=== PATIENT | male | born 2000 | race Caucasian/White ===

== ENCOUNTER 2024-06-02 10:37 | Emergency (ER) | payer BC, SELFPAY ==
--- NOTE | ~2024-06-02 | CT_ITS ---
CLINICAL HISTORY: RLQ pain CT abdomen and pelvis with contrast Comparison: None Findings: The lung bases are clear. The appendix is seen on coronal image 14 and axial images [id number]. This is normal. No surrounding stranding or abnormal thickening. The liver, gallbladder, spleen, adrenal glands and pancreas are unremarkable. Kidneys, ureters and bladder are normal. No acute osseous finding. No bowel obstruction or free air. Scattered gas and fluid seen throughout nondistended small and large bowel. Mild engorgement of the vasa recta. Impression: Normal appendix. Findings may suggest mild enteritis. This document has been electronically signed by: Addy Babcock MD on 06/02/2024 13:13:48
[2024-06-02 10:49] VITALS: BP 132/65; PULSE 64; RESP 18; O2SAT 100; BMI 24.7
--- OUTSIDE RECORDS SUMMARY | 2024-06-02 11:11 | XMS_ITS | Encounter Summary ---
Author Organization [facility] Address [address] [place] [address] Phone Care Team Providers Care Metal Fitter Name Role Phone Ann Rubi MD Primary Care Prov ider Encounter Details Date Type Department Care Team (Late st Contact Info) Description 06/15/2017 Conversion Encounter [facility] [address] [phone] Ann Kelly MD [address] [address] Social History Tobacco Use Types Packs/Day Years Used Date Smoking Tobacco: Never Assessed Sex and Gender Information Value Date Recorded Sex Assigned at Not on file Legal Sex Male 12:17 PM EST Gender Identity Not on file Sexual Orientation Straight 02/26/2019 1: 28 PM EST documented as of this encounter Plan of Treatment Not on file documented as of this encounter Visit Diagnoses Not on filedocumented in this encounter Care Teams Metal Fitter Relationship Specialty Start Date End Date Ann Rubi MD [address] [address] PCP - General 02/28/17 documented as of this encounter
--- OUTSIDE RECORDS SUMMARY | 2024-06-02 11:11 | XMS_ITS | Encounter Summary ---
Author Organization [facility] Address [address] [place] [address] Phone Care Team Providers Care Roller Man Name Role Phone Ann Rubi MD Primary Care Prov ider Reason for Visit * Reason Comments Med Refill Encounter Details Date Type Department Care Team ([facility] st Contact Info) Description 07/08/2019 Refill [facility] [address] [phone] Lamar Jo MD [address] [address] Mild intermittent asthma with acute exacerbation Social History Tobacco Use Types Packs/Day Years Used Date Smoking Tobacco: Never Smokeless Tobacco: Never Alcohol Use Standard Drinks/Week Comments No 0 (1 standard drink = 0.6 oz pur e alcohol) Hunger/Food Answer Date Recorded In the last 12 months, did y ou or your family ever eat less than you felt you should because there wasn't enough money for food? No 06/20/2019 Stable Housing Answer Date Recorded Are you worried that in the next 2 months you may not have stable housing? No 06/20/2019 Transportation Concerns Answer Date Rec orded In the last 12 months, have you or your family ever had to go without healthcare because you didn't have a way to get there? No 06/20/2019 Hazards in Home Answer Date Recorded Think about the place you li ve. Do you have problems with any of the following? Pests (mice or roaches), mold, no/not working smoke detectors, water leaks, no window guards. No 2019 Financing Utilities Answer Date Recorde d In the last 12 months, has t he electric, gas, oil, or water company threatened to shut off your services in your home? No 06/20/2019 Safety at Home Answer Date Recorded Are you or your family worried about feeling saf e in your home? No 06/20/2019 Outside Support Answer Date Recorded Do you feel that you need mo re support from other people or programs to help you care for yourself or your family? No 06/20/2019 Understanding Health Concerns Answer Da te Recorded Do you need help understandi ng your or your child's healthcare needs (diagnosis, medications, plan, etc.)? No 06/20/2019 Financing Health Concerns Answer Date R ecorded In the last 12 months, was t here a time when your child needed to see a doctor or get medications or supplies but could not because of cost? No 06/20/2019 Missing School or Work Answer Date Angel rded Did you or your child miss s chool or work because of a health problem that could have been avoided? No 06/20/2019 Sex and Gender Information Value Date Recorded Sex Assigned at Not on file Legal Sex Male 12:17 PM EST Gender Identity Not on file Sexual Orientation Straight 02/26/2019 1: 28 PM EST documented as of this encounter Plan of Treatment Not on file documented as of this encounter Visit Diagnoses Diagnosis Mild intermittent asthma with acute exacerbation documented in this encounter Care Teams Roller Man Relationship Specialty Start Date End Date Ann Rubi MD [address] [place] [address] PCP - General 02/28/17 documented as of this encounter
--- OUTSIDE RECORDS SUMMARY | 2024-06-02 11:11 | XMS_ITS | Encounter Summary ---
Author Organization [facility] Address [address] [place] [address] Care Team Providers Care Receiving Associate Name Role Phone Jennifer Gregory MD Primary Care Provider [phone] Reason for Visit * Reason Onset Date Comments Workers Comp Update 05/07/2024 MRI 05/07/2024 Encounter Details Date Type Department Care Team (Late st Contact Info) Description 05/07/2024 Telephone Orthopedic Surgery - [place] [address] [place] [phone] Anam Daley MD [address] [place] [address] [place] [address] Workers Comp Update; MRI Social History Tobacco Use Types Packs/Day Years Used Date Smoking Tobacco: Never Smokeless Tobacco: Never Alcohol Use Standard Drinks/Week Comments Yes 0 (1 standard drink = 0.6 oz pur e alcohol) Sex and Gender Information Value Date Recorded Sex Assigned at Not on file Legal Sex Male 4:37 AM EST Gender Identity Not on file Sexual Orientation Not on file documented as of this encounter Progress Notes * Milan Cuellar MA - 05/31/2024 4:16 PM EST Per Prasanna, MRI not scheduled yet. They called pt on 05/28 and 05/30 and left him vm's. Pt has not called them back. * Milan Cuellar MA - 05/27/2024 2:05 PM EST MRI approval letter faxed to [facility] at [phone]. They will contact pt to schedule appt. * Milan Cuellar MA - 05/27/2024 2:04 PM EST Images from the original note were not included. Keerthi Gonzales MA You; Ita De La Vegae1 hour ago (12:38 PM) Hello- MRI Auth scanned in media from So. She emailed me the auth for MRI and SX ThanksKeerthi * Milan Cuellar MA - 05/27/2024 11:07 AM EST Hi team. I have reached out to [facility] and So, nurse manager of case, multiple times asking for approval letter faxed to us and/or to [facility]. I also reached out to pt. Not sure what else to do. Please advise. Thankyou. Please see thread below for reference. * Milan Cuellar MA - 05/27/2024 11:06 AM EST Images from the original note were not included. Ita Hernández routed conversation to You; Keerthi Gonzales MA18 minutes ago (10:47 AM) Ita Oconnell8 minutes ago (10:47 AM) Kelsey calling for [facility] to see if there was any update on getting the MRI approval through [facility]. The patient's MRI is pending auth and they will not schedule the MRI without the approval notice. Once received this can be faxed to [phone]. * Milan Cuellar MA - 05/24/2024 12:24 PM EST Left pt detailed vm at [phone] explaining that we have not received [facility] approval letter for MRI and neither has [facility], and without it MRI cannot be done. Asked him to please call his [facility] barrel endshake adjuster and ask for letter to be faxed to us at [phone]. * Milan Cuellar MA - 05/23/2024 3:12 PM EST Spoke with Millie from [facility] and let her know that per nurse manager of case So, she will be faxing them over [facility]'s MRI approval letter. They will keep an eye out for the letter at [facility]. * Milan Cuellar MA - 05/23/2024 3:12 PM EST Jesica Fox routed conversation to You20 minutes ago (2:50 PM) Jesica Fox20 minutes ago (2:50 PM) SANDRA Cole, from [facility], is calling, he needs to know if the MRI is going thru [facility], If it is then she will need the [facility] Authorization approval, if not , she will need patient's private insurance. Please bess back with any questions @ [phone]. Thanks. * Milan Cuellar MA - 05/20/2024 1:53 PM EST Spoke with So and let her know that we have not received the approval letter yet. So made awarethat I also contacted [facility] and left them vm requesting this letter but nothing yet. So states thatshe will contact them and get this letter sent directly to [facility]. Once [facility] receives letter, they will contact pt to schedule appt. * Milan Cuellar MA - 05/20/2024 1:48 PM EST Images from the original note were not included. Keerthi Gonzales MA routed conversation to You1 hour ago (12:29 PM) Keerthi Gonzales MA1 hour ago (12:29 PM) Hello- Nurse manager of case from [facility] called left a vm as she contacted Jose [facility], and they advised patient has not had MRI that is needed as of yet. She is asking for status. So can be reached at [phone]. I did leave her a vm that I would send you a message as to thestatus of MRI. Thanks, Keerthi * Milan Cuellar MA - 05/14/2024 3:34 PM EST MRI approval letter still not received. Called [facility] Avila Verenice at [phone] and left detailed vm requesting this confirmation letter faxed to [phone]. * Milan Cuellar MA - 05/09/2024 8:45 AM EST Spoke with So and let her know that we will need the MRI approval in writing in order to scheduleMRI. She states that she has the conversation in an email thread where it states that MRI is approved. She will fax it to us at [phone]. If more information is needed, I will give her a call andshe will contact barrel endshake adjuster for a more formal letter. * Janet Anne - 05/07/2024 10:43 AM EST So Levine calling from [facility], she is his Cargo Trimmer for . So states she needs an update on the medical plan for the patient. The adjustor has given an approval for the repeat MRI and thearthroscopy. Pt states he is waiting on us to book these appointments but our notes state we are waiting on the patient to decide if he would like to move forward with surgery. Please contact So with an update : [phone] documented in this encounter Plan of Treatment Scheduled Procedures Name Priority Associated Diagnoses Date/Ti me ARTHROSCOPY SHOULDER CAPSULORRHAPHY Post-traumatic stiffness of right shoulder joint documented as of this encounter Visit Diagnoses Not on filedocumented in this encounter Care Teams Receiving Associate Relationship Specialty Start Date End Date Jennifer Gregory MD [address] [place] [address] PCP - General 09/15/22 documented as of this encounter
--- OUTSIDE RECORDS SUMMARY | 2024-06-02 11:11 | XMS_ITS | Clinical Summary ---
Author Organization [address] [facility] Address [address] [place] [address] Phone Care Team Providers Care Physical Ther Name Role Phone Jennifer Gregory MD Primary Care Provider [phone] Allergies No known active allergies Medications ACETAMINOPHEN ORAL Take by mouth. TYLENOL 8 HOUR Active Active Problems Problem Noted Date Diagnosed Date Post-traumatic stiffness of right shoulder joint 05/08/2024 Abnormal EKG 12/06/2022 Overview (02/29/2024): Last Assessment & Plan: Patient's EKG is normal a slight rightward axis in a young healthy male is normal and the repolarization is normal there is no indication of any cardiac pathology on exam or by history. Based on these findings of a cardiovascular standpoint there is no contraindication to his planned surgery Encounters Date Type Department Care Team Description 05/20/2024 Telephone Orthopedic Surgery [facility] 250 [address] [facility] 250 [place] [address] Keerthi Gonzales MA MRI 05/20/2024 Telephone Orthopedic Surgery [facility] 250 [address] [facility] 250 [place] [address] Keerthi Gonzales MA 05/16/2024 Telephone Orthopedic Surgery [facility] 250 [address] [facility] 250 [place] [address] Keerthi Gonzales MA Surgery 05/07/2024 Telephone Orthopedic Surgery [facility] 160 [address] [facility] 160 [place] [address] Anam Daley MD Workers Comp Update; MRI 04/04/2024 Telephone Orthopedic Surgery [facility] 160 [address] [facility] 160 [place] [phone] Anam Daley MD 04/03/2024 11:30 AM EST Office Visit Orthopedic Surgery [facility] 160 [address] [facility] 160 [place] [phone] Anam Daley MD Right shoulder pain (Primary Dx) from Last 3 Months Immunizations Name Administration Dates Next Due Tdap Tetanus diptheria acell ular pertussis (Boostrix; Adacel) 7yo and older 11/29/2022 Surgical History Surgery Date Site/Laterality Comments HAND SURGERY 2015 Right PROCEDURE: HISTORICAL HAND SURGERY SHOULDER SURGERY 12/29/2022 Right PROCEDURE: HISTORICAL SHOULDER SURGERY; COMMENT: Bankart repair and remplissage Medical History Medical History Date Comments Patient denies medical problems DX:Patient denies medical problems Family History Medical History Relation Name Comments Hyperlipidemia Father Hypertension Father Hypertension Mother Relation Name Status Comments Father Mother Social History Tobacco Use Types Packs/Day Years Used Date Smoking Tobacco: Never Smokeless Tobacco: Never Alcohol Use Standard Drinks/Week Comments Yes 0 (1 standard drink = 0.6 oz pur e alcohol) Sex and Gender Information Value Date Recorded Sex Assigned at Not on file Legal Sex Male 4:37 AM EST Gender Identity Not on file Sexual Orientation Not on file Obstetrics History Last Filed Vital Signs Vital Sign Reading Time Taken Comments Blood Pressure 104/60 12/20/2023 1:34 PM EDT Pulse 84 12/20/2023 1:34 PM EDT Temperature - - Respiratory Rate - - Oxygen Saturation - - Inhaled Oxygen Concentration - - Weight 77.1 kg (170 lb) 04/03/2024 11:50 AM EST Height 175.3 cm (5' 9 ) 04/03/2024 11:50 AM EST Body Mass Index 25.1 04/03/2024 11:50 AM EST Plan of Treatment Scheduled Procedures Name Priority Associated Diagnoses Date/Ti me ARTHROSCOPY SHOULDER CAPSULORRHAPHY Post-traumatic stiffness of right shoulder joint Health Maintenance Due Date Last Done Comments Pneumococcal Vaccine: Pediatrics (0 to 5 Years) and At-Risk Patients (6 to 64 Years) (1 of 1 - PPSV23) 2006 07/19/2001, 01/24/2001, 2000, Additional history exists Meningococcal B Vacine (1 of 2 - Standard) 2016 Depression Screening 03/20/2022 HIV Screening 03/20/2022 Hepatitis C Screening 03/20/2022 Social Influencers of Health Screening 03/20/2022 COVID-19 Vaccine ( - season) 2023 Influenza Vaccine (#1) 2023 5, 12/31/2013, 02/12/2011, Additional history exists Cholesterol Screening (Lipid Panel) 11/30/2027 11/29/2022 DTaP,Tdap,and Td Vaccines (8 - Td or Tdap) 11/29/2032 11/29/2022, 09/05/2011, 07/26/2004, Additional history exists Hepatitis B Vaccines Completed 04/23/2001, 2000, 2000 HIB Vaccines Completed 10/17/2001, 01/15, 2000, Additional history exists IPV Vaccines Completed 07/26/2004, 06/2001, 2000, Additional history exists MMR Vaccines Completed 07/26/2004, 10/17/2001 Varicella Vaccines Completed 08/04/2006, 07/19/2001 HPV Vaccines Completed 03/13/2012, 10/16, 09/05/2011 Hepatitis A Vaccines Completed 04/27/2015, 10/23/19 15 Meningococcal ACWY Vaccine Completed 12/29/2016, RSV Immunization Patients Under 20 months Aged Out No longer eligible based on patient's age to complete this topic Procedures Procedure Name Priority Date/Time Associated Diagnosis Comments EXTERNAL MRI REPORT Routine 04/04/2024 1 0:23 AM EST XR SHOULDER 2+ VIEWS RIGHT Routine 04/03/2024 11:45 AM EST Right shoulder pain LIPID PANEL Routine 11/29/2022 from Last 3 Months or Most Recently Relevant to Health Maintenance Results * External MRI Report (04/04/2024 10:23 AM EST) Anatomical Region Laterality Modality Magnetic Resonan ce Historical Provider IMG MRI PROCEDURES Final Result * XR Shoulder 2+ Views Right (04/03/2024 11:45 AM EST) Anatomical Region Laterality Modality Upper Extremities, Shoulder Right Comp uted Radiography Narrative 04/03/2024 11:53 AM EST Shoulder x-rays April 03, 2024. ??AP, Grashey, Y lateral. ??No acute osseous abnormalities noted. ??Good preservation of the glenohumeral articular cartilage. ??Patient unable to tolerate axillary view. Anam Daley MD IMG XR PROCEDURES Final Result * (ABNORMAL) Lipid panel (11/29/2022) LDL/HDL Ratio 3 0 - 4 Triglycerides 152(A) 0 - 150 mg/dL Cholesterol 125 0 - 200 mg/dL HDL 47 >=40 mg/dL LDL Cholesterol 48 0 - 100 mg/dL Blood Venous blood specimen / Unknown Historical Provider LAB BLOOD ORDERABLES Yolis l Result from Last 3 Months or Most Recently Relevant to Health Maintenance Insurance [address] [place] [id number] [place] [address] [facility] WC GENERIC Care Teams Physical Ther Relationship Specialty Start Date End Date Jennifer Gregory MD [address] [place] [address] PCP - General 09/15/22
--- OUTSIDE RECORDS SUMMARY | 2024-06-02 11:11 | XMS_ITS | Encounter Summary ---
Author Organization [facility] Address [address] [place] [address] Care Team Providers Care Sole Inker Name Role Phone Jennifer Gregory MD Primary Care Provider [phone] Reason for Visit * Reason Onset Date Comments MRI 05/20/2024 Encounter Details Date Type Department Care Team (Late st Contact Info) Description 05/20/2024 Telephone Orthopedic Surgery - [place] 250 [address] [facility] [address] [place] [address] Keerthi Gonzales MA MRI Social History Tobacco Use Types Packs/Day [...] as of this encounter Progress Notes * Ita Hernández - 05/27/2024 10:46 AM EST Kelsey calling for [facility] to see if there was any update on getting the MRI approval through [facility]. The patient's MRI is pending auth and they will not schedule the MRI without the approval notice. Once received this can be faxed to [phone]. * Jesica Fox - 05/23/2024 2:46 PM EST Kelsey, from [facility], is calling, he needs to know if the MRI is going thru [facility], If it is then she will need the [facility] Authorization approval, if not , she will need patient's private insurance. Please bess back with any questions @ [phone]. Thanks. * Milan Cuellar MA - 05/20/2024 1:50 PM EST Please see previous telephone encounter for more info. Thank you * Keerthi Gonzales MA - 05/20/2024 12:27 PM EST Hello- Nurse renal case manager from [facility] called left a vm as [facility] and [facility] advised patient has not had MRI that is needed as of yet. She is asking for status. So can be reached at [phone]. I did leave her a vm that I would send you a message as to thestatus of MRI. Shmuel, Keerthi documented in this encounter Plan of Treatment Scheduled Procedures Name Priority Associated Diagnoses Date/Ti me ARTHROSCOPY SHOULDER CAPSULORRHAPHY Post-traumatic stiffness of right shoulder joint documented as of this encounter Visit Diagnoses Not on filedocumented in this encounter Care Teams Sole Inker Relationship Specialty Start Date End Date Jennifer Gregory MD [address] [place] [address] PCP - General 09/15/22 documented as of this encounter
--- OUTSIDE RECORDS SUMMARY | 2024-06-02 11:11 | XMS_ITS | Encounter Summary ---
Author Organization [facility] Address [address] [place] [address] Care Team Providers Care Implant Coordinator Name Role Phone Jennifer Gregory MD Primary Care Provider Encounter Details Date Type Department Care Team (Late st Contact Info) Description 05/20/2024 Telephone Orthopedic Surgery - [place] 250 [address] [facility] [address] [place] [address] Keerthi Gonzales MA Social History Tobacco Use Types Packs/Day Years [...] on file documented as of this encounter Plan of Treatment Scheduled Procedures Name Priority Associated Diagnoses Date/Ti me ARTHROSCOPY SHOULDER CAPSULORRHAPHY Post-traumatic stiffness of right shoulder joint documented as of this encounter Visit Diagnoses Not on filedocumented in this encounter Care Teams Implant Coordinator Relationship Specialty Start Date End Date Jennifer Gregory MD [address] [place] [address] PCP - General 09/15/22 documented as of this encounter
--- OUTSIDE RECORDS SUMMARY | 2024-06-02 11:11 | XMS_ITS | Encounter Summary ---
Author Organization [facility] Address [address] [place] [address] Care Team Providers Care Party Host Name Role Phone Jennifer Gregory MD Primary Care Provider [phone] Reason for Visit * Reason Onset Date Comments Surgery 05/16/2024 Encounter Details Date Type Department Care Team (Late st Contact Info) Description 05/16/2024 Telephone Orthopedic Surgery - [place] [address] [place] [address] [place] [phone] Keerthi Gonzales MA Surgery Social History Tobacco Use Types Packs/Day Years [...] as of this encounter Progress Notes * Keerthi Gonzales MA - 05/16/2024 9:16 AM EST 05/16/24 Lvm for patient to schedule surgery documented in this encounter Plan of Treatment Scheduled Procedures Name Priority Associated Diagnoses Date/Ti me ARTHROSCOPY SHOULDER CAPSULORRHAPHY Post-traumatic stiffness of right shoulder joint documented as of this encounter Visit Diagnoses Not on filedocumented in this encounter Care Teams Party Host Relationship Specialty Start Date End Date Jennifer Gregory MD [address] [place] [address] PCP - General 09/15/22 documented as of this encounter
[2024-06-02 11:12] LABS: Basophils Absolute Auto 0.1 X10*3/uL (0.0-0.2); Basophils Percent Auto 0.9 % (0-2); Eosinophils Absolute Auto 0.3 X10*3/uL (0.0-0.4); Hematocrit 42.3 % (42.0-52.0); Hemoglobin 15.2 g/dl (14.0-18.0); Imm Gran Abs Auto 0.01 X10*3/uL (0.00-0.03); Imm Gran Pct Auto 0.2 % (0.0-0.4); Lymphocytes Absolute Auto 1.6 X10*3/uL (1.2-4.9); Lymphocytes Percent Auto 30.4 % (20-40); MANUAL DIFF FLAG NO; Mean Corpuscular HGB Conc 35.9 g/dl (31.0-36.0); Mean Corpuscular Hemoglobin 30.9 pg (27.0-33.0); Mean Platelet Volume 10.9 fL (9.4-12.4); Monocytes Absolute Auto 0.4 X10*3/uL (0.1-1.2); Monocytes Percent Auto 7.8 % (2-11); Neutrophils Percent Auto 55.7 % (45-73); Platelet Count 227 X10*3/uL (160-400); Red Blood Count 4.92 X10*6/uL (4.60-5.80); Red Cell Distribution Width 11.9 % (11.0-16.0); White Blood Count 5.4 X10*3/uL (4.8-10.8)
[2024-06-02 11:13] LABS: Appearance Urine Cloudy; Color Urine Yellow; Glucose Urine UA Negative (Negative); Leukocyte Esterase Urine Negative (Negative); Nitrite Urine Negative (Negative); PH 6.5 (5.0-9.0); Specific Gravity - Urine >= 1.030 (1.005-1.025); Urine Blood Negative (Negative); Urine Ketones Trace mg/dL (Negative); Urine Protein Negative (Neg-Trace)
[2024-06-02 11:29] LABS: Alanine Aminotransferase 14 U/L (0-40); Albumin Level 4.5 g/dL (3.5-5.0); Alkaline Phosphatase 59 U/L (39-117); Anion Gap 10 (12-20); Aspartate Amino Transferase 18 U/L (5-37); Bilirubin Total 0.4 mg/dL (0.0-1.0); Blood Urea Nitrogen 12 mg/dL (9-16); Calcium 9.7 mg/dL (8.4-10.2); Carbon Dioxide 25 mmol/L (22-29); Chloride 108 mmol/L (96-108); Creatinine Clr Calc Pharmacy 141.8; Estimated Glomerular Filt Rate > 60; Glucose Random 94 mg/dL (60-115); Lipase 21 U/L (8-78); Magnesium 1.8 mg/dL (1.6-2.6); Potassium 4.4 mmol/L (3.3-5.1); Sodium 139 mmol/L (135-145); Total Protein 7.9 g/dL (6.5-8.0)
--- NOTE | 2024-06-02 11:46 | ED_ITS ---
HPI - Abdominal Pain General Chief Complaint: Abdominal Pain Stated Complaint: lower right abd pain Time Seen by Provider: 06/02/24 11:40 Source: patient and RN notes reviewed Mode of arrival: ambulatory Limitations: no limitations History of Present Illness ED Provider: Nikki Aguayo PA-C HPI narrative: This is a 23-year-old male who presents emergency department with complaints of intermittent right lower quadrant pain for the last 3 days. Patient states that over the last several days he has noticed with movement his pain has worsened. Last bowel movement was yesterday and was normal. He denies any fevers, chills, nausea, vomiting or diarrhea. He was passing gas without problem. No abdominal surgeries. Denies any recent heavy lifting. He denies any testicular pain or swelling. No concerns for STIs. No other complaints or concerns at this time. MD elicited complaint: abdominal pain Pertinent past history: none Pain Consistency: constant Location: none Quality: cramping and aching Radiation: none Migration to: no migration Exacerbating factors: movement Relieving factors: nothing Associated symptoms: denies other symptoms Related Data Allergies Allergy/AdvReac Type Severity Reaction Status Date / Time No Known Allergies Allergy Verified 06/02/24 10:50 Review of Systems Review of Systems Yes all other systems are reviewed and are negative Constitutional: Reports as per [facility] Social History Social History Advance Directives: No Advance Directives Information Provided: No Physical Exam ED Vital Signs: Vital Signs - 24 hr 06/02/24 10:49 Pulse Rate 64 Respiratory Rate 18 Blood Pressure 132/65 Pulse Oximetry 100 Oxygen Delivery Method Room Air BMI result Body Mass Index 24.7 Const General: cooperative, comfortable and no acute distress Orientation/consciousness: patient oriented x3 Limitations: no limitations HENMT Head: Yes normal to inspection, Yes normocephalic and Yes atraumatic Ears: hearing grossly normal bilaterally General nose exam: Normal external nose present Face and sinus: Yes normal facial exam Mouth: Normal oral and palatal mucosa present, oropharynx normal and moist mucous membranes Throat: Yes posterior oropharynx normal Eyes General: appearance normal, both eyes and all related structures Eyelids: Yes eyelids normal Conjunctivae: conjunctivae normal Sclerae: sclerae normal Pupils: Equal, round and reactive pupils present EOM: EOMs intact bilaterally Neck Neck: Yes normal visual inspection, Yes full ROM and Yes no lymphadenopathy Lymphatic: no lymphadenopathy noted Chest Chest palpation & inspection: normal inspection of the chest Resp Effort & Inspection: normal respiratory effort and able to speak in complete sentences Auscultation: clear to auscultation bilaterally, no crackles, no rales, no rhonchi and no wheezes Cardio Rate: regular rate Rhythm: regular rhythm Heart sounds: S1 normal heart sound present and S2 normal heart sound present GI Other: Abdomen is soft with tenderness palpation in the right lower quadrant, overlying McBurney's point Negative Rovsing's, positive obturator sign. Normoactive bowel sounds present in all 4 quadrants. Inspection: Yes normal to inspection Skin General skin exam: no rashes or lesions noted Trauma: no lacerations or abrasions Wounds: no wounds Neuro General: patient oriented x3 and moves all extremities Cranial nerves: Yes Equal, round and reactive pupils present Extrem General: Yes normal to inspection Right upper extremity: normal to inspection Left upper extremity: normal to inspection Right lower extremity: normal to inspection Left lower extremity: normal to inspection Course Reevaluation(s) Reevaluation #1: Abdominal CT revealing normal appendix. Findings may suggest mild enteritis. Discussed findings with patient. Likely viral in etiology, symptoms are mild, will treat conservatively. Given strict return precautions. He understands agrees with plan. Patient stable for discharge. Time: 13:46 Medical Decision Making Medical Decision Making [facility] Narrative: This is a 23-year-old male who presents emergency department for evaluation of right lower quadrant pain for the last 3 days. On arrival, vital signs within normal limits. He is speaking in full sentences under no acute distress. Labs were obtained prior to my assessment, he has no leukocytosis, stable H&H, chemistry with no significant electrolyte derangement. Urine with high specific gravity in trace ketones, otherwise negative for infection. He does have tenderness palpation in the right lower quadrant, with positive obturator sign. No history of any abdominal surgeries. Differential diagnoses include acute appendicitis, SBO, acute cystitis, constipation. Will obtain CT abdomen with IV contrast to rule out any acute process. Offered pain medication, patient declines at this time. We will continue to monitor pending overall workup today. Differential Diagnosis Differential Diagnoses: The differential diagnosis associated with the presentation includes See above Admission/Observation Consideration of admission/observation: Escalation of care including admission/observation considered Lab Data [facility] Lab Attestation statement: I reviewed the patient's lab results. See [facility] 06/02/24 11:05 06/02/24 11:05 Labs: Lab Results 06/02/24 Range/Units 11:05 WBC 5.4 (4.8-10.8) X10*3/uL RBC 4.92 (4.60-5.80) X10*6/uL Hgb 15.2 (14.0-18.0) g/dl Hct 42.3 (42.0-52.0) % MCV 86.0 (80.0-98.0) fL MCH 30.9 (27.0-33.0) pg MCHC 35.9 (31.0-36.0) g/dl RDW 11.9 (11.0-16.0) % Plt Count 227 (160-400) X10*3/uL MPV 10.9 (9.4-12.4) fL Immature Gran % (Auto) 0.2 (0.0-0.4) % Neut % (Auto) 55.7 (45-73) % Lymph % (Auto) 30.4 (20-40) % [place] % (Auto) 7.8 (2-11) % Eos % (Auto) 5.0 H (0-4) % Baso % (Auto) 0.9 (0-2) % Lymph # (Auto) 1.6 (1.2-4.9) X10*3/uL [place] # (Auto) 0.4 (0.1-1.2) X10*3/uL Eos # (Auto) 0.3 (0.0-0.4) X10*3/uL Baso # (Auto) 0.1 (0.0-0.2) X10*3/uL Abs Immat Gran (auto) 0.01 (0.00-0.03) X10*3/uL Absolute Neuts (auto) 3.0 (2.0-8.3) x10*3/uL Absolute Nucleated RBC 0.000 (0.0-0.012) X10*3/uL Nucleated RBC % (auto) 0.0 (0.0-0.2) /100WBC Sodium 139 (135-145) mmol/L Potassium 4.4 (3.3-5.1) mmol/L Chloride 108 (96-108) mmol/L Carbon Dioxide 25 (22-29) mmol/L Anion Gap 10 L (12-20) BUN 12 (9-16) mg/dL Creatinine 0.81 (0.5-1.4) mg/dL Estim Creat Clear Calc 141.8 Estimated GFR > 60 Random Glucose 94 (60-115) mg/dL Calcium 9.7 (8.4-10.2) mg/dL Magnesium 1.8 (1.6-2.6) mg/dL Total Bilirubin 0.4 (0.0-1.0) mg/dL AST 18 (5-37) U/L ALT 14 (0-40) U/L Alkaline Phosphatase 59 (39-117) U/L Total Protein 7.9 (6.5-8.0) g/dL Albumin 4.5 (3.5-5.0) g/dL Lipase 21 (8-78) U/L Urine Color Yellow Urine Appearance Cloudy Urine pH 6.5 (5.0-9.0) Ur Specific [place] >= 1.030 H (1.005-1.025) Urine Protein Negative (Neg-Trace) mg/dL Urine Glucose (UA) Negative (Negative) mg/dL Urine Ketones Trace (Negative) mg/dL Urine Blood Negative (Negative) Urine Nitrite Negative (Negative) Ur Leukocyte Esterase Negative (Negative) Radiology Impression Discussion of test interpretation with radiology: I have reviewed the radiologist's reading. Radiologist Impression: Findings: The lung bases are clear. The appendix is seen on coronal image 14 and axial images [id number]. This is normal. No surrounding stranding or abnormal thickening. The liver, gallbladder, spleen, adrenal glands and pancreas are unremarkable. Kidneys, ureters and bladder are normal. No acute osseous finding. No bowel obstruction or free air. Scattered gas and fluid seen throughout nondistended small and large bowel. Mild engorgement of the vasa recta. Impression: Normal appendix. Findings may suggest mild enteritis. This document has been electronically signed by: Addy Babcock MD on 06/02/2024 13:13:48 Medications Administered Discontinued Medications Generic Name Dose Route Start Last Admin Trade Name Freq PRN Reason Stop Dose Admin Iohexol 100 ml 06/02/24 12:48 06/02/24 12:48 Iohexol 350 Mg/Ml 100 Ml Infus..Btl IV 06/02/24 12:49 85 ml ONCE ONE Administration Discharge Plan Discharge Clinical Impression: Abdominal pain, Enteritis Patient Disposition: Home, Self-Care Instructions: Abdominal Pain (ED), Enteritis (ED) Additional Instructions: You were seen in the emergency department due to abdominal pain. Your blood work was reassuring. Your CT scan shows slight enteritis, which is slight inflammation in your small colon. This could be attributed to a virus or something that you have eaten. This should resolve over several days. You may alternate between ibuprofen and or Tylenol as needed for pain and symptoms Please rest, drink plenty of fluids and stick to a bland diet over the next several days. Watch for any new or worsening symptoms including but not limited to high fevers, worsening and severe abdominal pain, nausea or vomiting, please seek emergent care. Print Language: [place]
--- NOTE | 2024-06-02 12:09 | PC.NURSE ---
18g IV access established in right AC. Radiology notified.
[2024-06-02] MEDS: iohexoL 350 MG/ML 100 ML INFUS..BTL IV (12:48)
[2024-06-02 14:11] VITALS: BP 132/65; PULSE 64; RESP 18; TEMP 36.7; O2SAT 100
== END 2024-06-02 14:11 | disposition home or self-care (01) ==
PROVIDERS: Emergency Provider Emergency Medicine
DX: K52.9 Noninfective gastroenteritis and colitis, unspecified (principal); R10.2 Pelvic and perineal pain; Z79.899 Other long term (current) drug therapy
CPT/HCPCS: 36415; 74177; 80053; 81003; 83690; 83735; 85025; 99283; 99284; Q9967

== ENCOUNTER → 2024-06-02 11:51 | Outpatient (BNV) | payer BC, SELFPAY | PROVIDERS: Emergency Provider Emergency Medicine; Visit Provider Radiology Vascular & Interventional Radiology | DX: K52.9 Noninfective gastroenteritis and colitis, unspecified (principal) | CPT/HCPCS: 74177 ==